=== PATIENT | female | born 1940 | race Asian ===

== ENCOUNTER 2018-11-27 13:40 | Inpatient (IN) | payer MEDICAID ==
[2018-11-27 14:04] LABS: ADD MAN DIFF? NO
[2018-11-27] MEDS: ONDANSETRON 4 MG INJ IV ×2 (14:04→22:47)
[2018-11-27 14:23] LABS: WHITE BLOOD COUNT 11.1 10^3/ul (4.8-10.8)
[2018-11-27 14:23] LABS: BASOPHILS % 0.3 % (0.0-2.0); HEMATOCRIT 48.5 % (37.0-47.0); HEMOGLOBIN 16.4 g/dl (12.0-16.0); LYMPHOCYTES # 0.8 10^3/ul (0.8-2.9); LYMPHOCYTES % 7.2 % (15.0-51.0); MEAN CORPUSCULAR HEMOGLOBIN 28.5 pg (29.0-33.0); MEAN CORPUSCULAR HGB CONC 33.8 g/dl (32.0-37.0); MEAN CORPUSCULAR VOLUME 84.3 fl (82.0-101.0); MEAN PLATELET VOLUME 9.8 fl (7.4-10.4); MONOCYTE # 0.3 10^3/ul (0.3-0.9); MONOCYTES % 2.7 % (0.0-11.0); NEUTROPHIL # 9.9 10^3/ul (1.6-7.5); NEUTROPHILS % 89.3 % (39.0-77.0); PLATELET COUNT 286 10^3/UL (140-415); RED BLOOD COUNT 5.75 10^6/ul (4.20-5.40); RED CELL DISTRIBUTION WIDTH 13.2 % (11.5-14.5)
[2018-11-27 14:26] LABS: ALANINE AMINOTRANSFERASE 17 IU/L (13-69); ALBUMIN 4.6 g/dl (3.3-4.9); ALBUMIN/GLOBULIN RATIO 1.09; ALKALINE PHOSPHATASE 123 IU/L (42-121); ANION GAP 11 (5-13); ASPARTATE AMINO TRANSFERASE 30 IU/L (15-46); BILIRUBIN,INDIRECT 0.4 mg/dl (0-1.1); BILIRUBIN,TOTAL 0.4 mg/dl (0.2-1.3); BLOOD UREA NITROGEN 14 mg/dl (7-20); CALCIUM 9.8 mg/dl (8.4-10.2); CARBON DIOXIDE 24 mmol/L (21-31); CHLORIDE 103 mmol/L (97-110); CREATININE 0.66 mg/dl (0.44-1.00); GLUCOSE 149 mg/dl (70-220); LIPASE 108 U/L (23-300); POTASSIUM 4.1 mmol/L (3.5-5.1); SODIUM 138 mmol/L (135-144); TOTAL PROTEIN 8.8 g/dl (6.1-8.1)
[2018-11-27 14:28] LABS: URINE PH (Dip) POC 5.5 (5.0-8.5)
[2018-11-27 14:28] LABS: URINE BLOOD (Dip) POC Trace-intact (NEGATIVE); URINE GLUCOSE (Dip) POC Negative (NEGATIVE); URINE KETONES (Dip) POC 2+ (NEGATIVE); URINE LEUKOCYTE EST (Dip) POC Negative (NEGATIVE); URINE NITRITE (Dip) POC Negative (NEGATIVE); URINE TOTAL PROTEIN POC 3+ (NEGATIVE)
[2018-11-27] MEDS: morphine 2 MG INJ IV (14:44)
[2018-11-27] MEDS: metroNIDAZOLE 500 MG/NS (PMX) 100 ML IVPB (15:42)
[2018-11-27] MEDS: SOD CHLORIDE 0.9% 500 ML IV (15:44)
[2018-11-27] MEDS ORDERED: FAMOTIDINE 20 MG TAB PO (16:30)
[2018-11-27] MEDS: LEVOFLOXACIN 750MG/D5W (PMX) 150 ML IVPB (16:35)
[2018-11-27] MEDS: KETOROLAC 15 MG INJ IV (16:36)
[2018-11-27] MEDS ORDERED: NACL 0.9% 3 ML SYG IV (17:00)
[2018-11-27] MEDS: PANTOPRAZOLE 40 MG INJ IV (18:23)
[2018-11-27] MEDS: ACETAMINOPHEN 325 MG TAB PO (18:24)
[2018-11-27] MEDS: ATORVASTATIN 10 MG TAB PO (20:46)
[2018-11-27] MEDS: SENNA TAB PO (20:46)
[2018-11-27] MEDS: CIPROFLOXACIN 400MG/D5W 200 ML IVPB (21:34)
[2018-11-27] MEDS ORDERED: metroNIDAZOLE (5 MG/ML) IV SYG IV* (22:00)
[2018-11-27] MEDS: Metronidazole 500 MG in NS 100 ML IVPB (22:47)
[2018-11-28 05:44] LABS: ADD MAN DIFF? NO
[2018-11-28 05:46] LABS: BASOPHILS % 0.1 % (0.0-2.0); EOSINOPHILS % 0.4 % (0.0-7.0); HEMATOCRIT 38.9 % (37.0-47.0); HEMOGLOBIN 12.9 g/dl (12.0-16.0); LYMPHOCYTES # 1.1 10^3/ul (0.8-2.9); LYMPHOCYTES % 13.5 % (15.0-51.0); MEAN CORPUSCULAR HEMOGLOBIN 28.6 pg (29.0-33.0); MEAN CORPUSCULAR HGB CONC 33.2 g/dl (32.0-37.0); MEAN CORPUSCULAR VOLUME 86.3 fl (82.0-101.0); MEAN PLATELET VOLUME 9.6 fl (7.4-10.4); MONOCYTE # 0.6 10^3/ul (0.3-0.9); NEUTROPHIL # 6.4 10^3/ul (1.6-7.5); NEUTROPHILS % 78.6 % (39.0-77.0); PLATELET COUNT 226 10^3/UL (140-415); RED BLOOD COUNT 4.51 10^6/ul (4.20-5.40); RED CELL DISTRIBUTION WIDTH 13.2 % (11.5-14.5)
[2018-11-28 05:59] LABS: WHITE BLOOD COUNT 8.1 10^3/ul (4.8-10.8)
[2018-11-28] MEDS: PANTOPRAZOLE 40 MG INJ IV ×2 (06:12→18:04)
[2018-11-28] MEDS: Metronidazole 500 MG in NS 100 ML IVPB ×3 (06:12→22:59)
[2018-11-28 06:20] LABS: ALANINE AMINOTRANSFERASE 21 IU/L (13-69); ALBUMIN 3.5 g/dl (3.3-4.9); ALBUMIN/GLOBULIN RATIO 1.06; ALKALINE PHOSPHATASE 69 IU/L (42-121); ANION GAP 13 (5-13); ASPARTATE AMINO TRANSFERASE 20 IU/L (15-46); BILIRUBIN,INDIRECT 0.4 mg/dl (0-1.1); BILIRUBIN,TOTAL 0.4 mg/dl (0.2-1.3); BLOOD UREA NITROGEN 16 mg/dl (7-20); CALCIUM 8.8 mg/dl (8.4-10.2); CARBON DIOXIDE 24 mmol/L (21-31); CHLORIDE 101 mmol/L (97-110); CHOLESTEROL 217 mg/dl (100-200); CREATININE 0.86 mg/dl (0.44-1.00); GLUCOSE 120 mg/dl (70-220); HDL CHOLESTEROL 31 mg/dl (33-92); LDL CHOLESTEROL,CALCULATED 161 mg/dl; MAGNESIUM 1.8 mg/dl (1.7-2.5); PHOSPHORUS 4.3 mg/dl (2.5-4.9); POTASSIUM 4.3 mmol/L (3.5-5.1); SODIUM 138 mmol/L (135-144); TOTAL PROTEIN 6.8 g/dl (6.1-8.1); TRIGLYCERIDES 127 mg/dl (0-149)
[2018-11-28 06:20] LABS: HEMOGLOBIN A1C 5.9 % (0-5.9)
[2018-11-28 06:46] LABS: THYROID STIMULATING HORMONE 0.821 MIU/L (0.465-4.680)
[2018-11-28] MEDS: AMLODIPINE 10 MG TAB PO (10:34)
[2018-11-28] MEDS: LORATADINE 10 MG TAB PO (10:34)
[2018-11-28] MEDS: SENNA TAB PO ×2 (10:35→20:35)
[2018-11-28] MEDS: METOPROLOL (XL) 25 MG TAB PO (10:35)
[2018-11-28] MEDS: LISINOPRIL 10 MG TAB PO (10:36)
[2018-11-28] MEDS: ONDANSETRON 4 MG INJ IV (10:41)
[2018-11-28] MEDS: CIPROFLOXACIN 400MG/D5W 200 ML IVPB ×2 (10:44→21:40)
[2018-11-28] MEDS: SOD CHLORIDE 0.9% 1,000 ML IV (14:32)
[2018-11-28] MEDS: POLYETHYLENE GLYCOL 17 GM PACKET PO (14:32)
[2018-11-28] MEDS: ATORVASTATIN 10 MG TAB PO (20:35)
[2018-11-29] MEDS: SOD CHLORIDE 0.9% 1,000 ML IV ×2 (05:55→16:10)
[2018-11-29] MEDS: PANTOPRAZOLE 40 MG INJ IV ×2 (05:55→17:41)
[2018-11-29] MEDS: Metronidazole 500 MG in NS 100 ML IVPB ×3 (06:05→23:19)
[2018-11-29 06:21] LABS: ADD MAN DIFF? NO
[2018-11-29 06:24] LABS: BASOPHILS % 0.3 % (0.0-2.0); EOSINOPHILS # 0.1 10^3/ul (0.0-0.5); EOSINOPHILS % 0.8 % (0.0-7.0); HEMATOCRIT 36.9 % (37.0-47.0); LYMPHOCYTES # 1.2 10^3/ul (0.8-2.9); LYMPHOCYTES % 18.1 % (15.0-51.0); MEAN CORPUSCULAR HEMOGLOBIN 28.8 pg (29.0-33.0); MEAN CORPUSCULAR HGB CONC 32.5 g/dl (32.0-37.0); MEAN CORPUSCULAR VOLUME 88.5 fl (82.0-101.0); MEAN PLATELET VOLUME 9.7 fl (7.4-10.4); MONOCYTE # 0.5 10^3/ul (0.3-0.9); MONOCYTES % 7.1 % (0.0-11.0); NEUTROPHIL # 4.9 10^3/ul (1.6-7.5); NEUTROPHILS % 73.4 % (39.0-77.0); PLATELET COUNT 207 10^3/UL (140-415); RED BLOOD COUNT 4.17 10^6/ul (4.20-5.40); RED CELL DISTRIBUTION WIDTH 13.2 % (11.5-14.5)
[2018-11-29 06:24] LABS: WHITE BLOOD COUNT 6.6 10^3/ul (4.8-10.8)
[2018-11-29 06:49] LABS: PHOSPHORUS 3.8 mg/dl (2.5-4.9)
[2018-11-29 06:49] LABS: MAGNESIUM 1.8 mg/dl (1.7-2.5)
[2018-11-29 07:09] LABS: ALANINE AMINOTRANSFERASE 21 IU/L (13-69); ALBUMIN/GLOBULIN RATIO 0.96; ALKALINE PHOSPHATASE 59 IU/L (42-121); ANION GAP 12 (5-13); ASPARTATE AMINO TRANSFERASE 18 IU/L (15-46); BILIRUBIN,INDIRECT 0.2 mg/dl (0-1.1); BILIRUBIN,TOTAL 0.2 mg/dl (0.2-1.3); BLOOD UREA NITROGEN 11 mg/dl (7-20); CALCIUM 8.6 mg/dl (8.4-10.2); CARBON DIOXIDE 24 mmol/L (21-31); CHLORIDE 104 mmol/L (97-110); CREATININE 0.81 mg/dl (0.44-1.00); GLUCOSE 104 mg/dl (70-220); POTASSIUM 3.8 mmol/L (3.5-5.1); SODIUM 140 mmol/L (135-144); TOTAL PROTEIN 6.1 g/dl (6.1-8.1)
[2018-11-29] MEDS: CIPROFLOXACIN 400MG/D5W 200 ML IVPB ×2 (08:42→22:13)
[2018-11-29] MEDS: POLYETHYLENE GLYCOL 17 GM PACKET PO (08:42)
[2018-11-29] MEDS: METOPROLOL (XL) 25 MG TAB PO (08:44)
[2018-11-29] MEDS: LISINOPRIL 10 MG TAB PO (08:45)
[2018-11-29] MEDS: SENNA TAB PO ×2 (08:45→20:11)
[2018-11-29] MEDS: AMLODIPINE 10 MG TAB PO (08:45)
[2018-11-29] MEDS: LORATADINE 10 MG TAB PO (08:46)
[2018-11-29] MEDS ORDERED: ALBUTEROL HFA 8 GM INHALER INH (15:00)
[2018-11-29] MEDS: MAGNESIUM SULFATE 2 GM/50 ML 50 ML IVPB (16:48)
[2018-11-29] MEDS: ATORVASTATIN 10 MG TAB PO (20:10)
[2018-11-30] MEDS: SOD CHLORIDE 0.9% 1,000 ML IV ×2 (03:21→18:50)
[2018-11-30] MEDS: PANTOPRAZOLE 40 MG INJ IV ×2 (05:18→17:24)
[2018-11-30] MEDS: Metronidazole 500 MG in NS 100 ML IVPB ×3 (05:18→23:35)
[2018-11-30] MEDS: CIPROFLOXACIN 400MG/D5W 200 ML IVPB ×2 (08:29→21:54)
[2018-11-30] MEDS: POLYETHYLENE GLYCOL 17 GM PACKET PO (08:30)
[2018-11-30] MEDS: LISINOPRIL 10 MG TAB PO (08:31)
[2018-11-30] MEDS: SENNA TAB PO ×2 (08:31→20:12)
[2018-11-30] MEDS: LORATADINE 10 MG TAB PO (08:31)
[2018-11-30] MEDS: AMLODIPINE 10 MG TAB PO (08:31)
[2018-11-30] MEDS: METOPROLOL (XL) 25 MG TAB PO (08:32)
[2018-11-30] MEDS: ENOXAPARIN 40 MG/0.4 ML SYG SC (08:33)
[2018-11-30 09:11] LABS: WHITE BLOOD COUNT 8.5 10^3/ul (4.8-10.8)
[2018-11-30 09:11] LABS: ADD MAN DIFF? NO; BASOPHILS % 0.4 % (0.0-2.0); EOSINOPHILS # 0.1 10^3/ul (0.0-0.5); EOSINOPHILS % 0.7 % (0.0-7.0); HEMATOCRIT 38.2 % (37.0-47.0); HEMOGLOBIN 12.3 g/dl (12.0-16.0); LYMPHOCYTES # 1.1 10^3/ul (0.8-2.9); LYMPHOCYTES % 12.5 % (15.0-51.0); MEAN CORPUSCULAR HEMOGLOBIN 28.2 pg (29.0-33.0); MEAN CORPUSCULAR HGB CONC 32.2 g/dl (32.0-37.0); MEAN CORPUSCULAR VOLUME 87.6 fl (82.0-101.0); MEAN PLATELET VOLUME 9.5 fl (7.4-10.4); MONOCYTE # 0.5 10^3/ul (0.3-0.9); NEUTROPHIL # 6.8 10^3/ul (1.6-7.5); NEUTROPHILS % 79.7 % (39.0-77.0); PLATELET COUNT 198 10^3/UL (140-415); RED BLOOD COUNT 4.36 10^6/ul (4.20-5.40); RED CELL DISTRIBUTION WIDTH 13.1 % (11.5-14.5)
[2018-11-30 09:32] LABS: ANION GAP 7 (5-13); BLOOD UREA NITROGEN 8 mg/dl (7-20); CALCIUM 8.5 mg/dl (8.4-10.2); CARBON DIOXIDE 23 mmol/L (21-31); CHLORIDE 108 mmol/L (97-110); CREATININE 0.73 mg/dl (0.44-1.00); GLUCOSE 176 mg/dl (70-220); MAGNESIUM 1.7 mg/dl (1.7-2.5); PHOSPHORUS 3.3 mg/dl (2.5-4.9); POTASSIUM 3.8 mmol/L (3.5-5.1); SODIUM 138 mmol/L (135-144)
[2018-11-30] MEDS: ONDANSETRON 4 MG INJ IV (14:28)
[2018-11-30] MEDS: DIATR MEGLU/DIATRIZOATE SODIUM 120 ML BTL (14:31)
[2018-11-30] MEDS: ATORVASTATIN 10 MG TAB PO (20:13)
[2018-12-01] MEDS: SOD CHLORIDE 0.9% 1,000 ML IV ×2 (00:37→20:38)
[2018-12-01] MEDS: Metronidazole 500 MG in NS 100 ML IVPB ×2 (05:00→14:07)
[2018-12-01] MEDS: PANTOPRAZOLE 40 MG INJ IV (05:01)
[2018-12-01] MEDS: POLYETHYLENE GLYCOL 17 GM PACKET PO (09:00)
[2018-12-01] MEDS: LORATADINE 10 MG TAB PO ×2 (09:11→09:12)
[2018-12-01] MEDS: SENNA TAB PO ×3 (09:12→20:36)
[2018-12-01] MEDS: CIPROFLOXACIN 400MG/D5W 200 ML IVPB (09:12)
[2018-12-01] MEDS: ENOXAPARIN 40 MG/0.4 ML SYG SC (09:16)
[2018-12-01] MEDS: LISINOPRIL 10 MG TAB PO (09:19)
[2018-12-01] MEDS: METOPROLOL (XL) 25 MG TAB PO (09:20)
[2018-12-01] MEDS: AMLODIPINE 10 MG TAB PO (09:20)
[2018-12-01] MEDS: ONDANSETRON 4 MG INJ IV ×2 (10:00→14:07)
[2018-12-01] MEDS: PANTOPRAZOLE (EC) 40 MG TAB PO (17:34)
[2018-12-01] MEDS: ATORVASTATIN 10 MG TAB PO (20:36)
[2018-12-02] MEDS: PANTOPRAZOLE (EC) 40 MG TAB PO ×3 (06:00→17:33)
[2018-12-02] MEDS: SENNA TAB PO (08:53)
[2018-12-02] MEDS: AMLODIPINE 10 MG TAB PO (08:54)
[2018-12-02] MEDS: LORATADINE 10 MG TAB PO (08:54)
[2018-12-02] MEDS: LISINOPRIL 10 MG TAB PO (08:55)
[2018-12-02] MEDS: METOPROLOL (XL) 25 MG TAB PO (08:55)
[2018-12-02] MEDS: ENOXAPARIN 40 MG/0.4 ML SYG SC (08:56)
[2018-12-02] MEDS: SOD CHLORIDE 0.9% 1,000 ML IV (09:03)
[2018-12-02] MEDS: ATORVASTATIN 10 MG TAB PO (20:10)
[2018-12-03] MEDS: PANTOPRAZOLE (EC) 40 MG TAB PO ×2 (06:05→17:28)
[2018-12-03 08:27] LABS: ADD MAN DIFF? NO
[2018-12-03 08:29] LABS: WHITE BLOOD COUNT 5.7 10^3/ul (4.8-10.8)
[2018-12-03 08:29] LABS: BASOPHILS % 0.4 % (0.0-2.0); EOSINOPHILS # 0.2 10^3/ul (0.0-0.5); EOSINOPHILS % 2.8 % (0.0-7.0); HEMATOCRIT 36.7 % (37.0-47.0); HEMOGLOBIN 12.3 g/dl (12.0-16.0); LYMPHOCYTES # 1.2 10^3/ul (0.8-2.9); LYMPHOCYTES % 21.3 % (15.0-51.0); MEAN CORPUSCULAR HEMOGLOBIN 28.2 pg (29.0-33.0); MEAN CORPUSCULAR HGB CONC 33.5 g/dl (32.0-37.0); MEAN CORPUSCULAR VOLUME 84.2 fl (82.0-101.0); MEAN PLATELET VOLUME 9.7 fl (7.4-10.4); MONOCYTE # 0.5 10^3/ul (0.3-0.9); MONOCYTES % 8.3 % (0.0-11.0); NEUTROPHIL # 3.8 10^3/ul (1.6-7.5); NEUTROPHILS % 66.8 % (39.0-77.0); PLATELET COUNT 202 10^3/UL (140-415); RED BLOOD COUNT 4.36 10^6/ul (4.20-5.40); RED CELL DISTRIBUTION WIDTH 12.9 % (11.5-14.5)
[2018-12-03] MEDS: LORATADINE 10 MG TAB PO (08:35)
[2018-12-03] MEDS: LISINOPRIL 10 MG TAB PO (08:36)
[2018-12-03] MEDS: METOPROLOL (XL) 25 MG TAB PO (08:36)
[2018-12-03] MEDS: AMLODIPINE 10 MG TAB PO (08:36)
[2018-12-03] MEDS: ENOXAPARIN 40 MG/0.4 ML SYG SC (08:38)
[2018-12-03 08:49] LABS: ANION GAP 5 (5-13); BLOOD UREA NITROGEN 6 mg/dl (7-20); CALCIUM 8.2 mg/dl (8.4-10.2); CARBON DIOXIDE 31 mmol/L (21-31); CHLORIDE 101 mmol/L (97-110); CREATININE 0.59 mg/dl (0.44-1.00); GLUCOSE 106 mg/dl (70-220); MAGNESIUM 1.6 mg/dl (1.7-2.5); PHOSPHORUS 2.9 mg/dl (2.5-4.9); SODIUM 137 mmol/L (135-144)
[2018-12-03] MEDS: POTASSIUM CHLORIDE (SR) 20 MEQ TAB PO (11:32)
[2018-12-03] MEDS: MAGNESIUM SULFATE 2 GM/50 ML 50 ML IVPB (11:32)
[2018-12-03] MEDS: ATORVASTATIN 10 MG TAB PO (20:16)
[2018-12-04] MEDS: PANTOPRAZOLE (EC) 40 MG TAB PO ×2 (05:08→17:17)
[2018-12-04] MEDS: LISINOPRIL 10 MG TAB PO (08:11)
[2018-12-04] MEDS: ENOXAPARIN 40 MG/0.4 ML SYG SC (08:11)
[2018-12-04] MEDS: AMLODIPINE 10 MG TAB PO (08:11)
[2018-12-04] MEDS: METOPROLOL (XL) 25 MG TAB PO (08:12)
[2018-12-04] MEDS: LORATADINE 10 MG TAB PO (08:12)
== END 2018-12-04 19:28 | disposition home health service (06) | DRG 392 ==
LOC: E/R 13:40 → PP2 15:50
DX: K57.92 Diverticulitis of intestine, part unspecified, without perforation or abscess without bleeding (principal); T62.91XA Toxic effect of unspecified noxious substance eaten as food, accidental (unintentional), initial encounter; R09.02 Hypoxemia; R07.89 Other chest pain; I10 Essential (primary) hypertension; E86.0 Dehydration; J44.9 Chronic obstructive pulmonary disease, unspecified; Z93.3 Colostomy status; E78.5 Hyperlipidemia, unspecified; Z85.048 Personal history of other malignant neoplasm of rectum, rectosigmoid junction, and anus
CPT/HCPCS: 36415; 71045; 74176; 74250; 80048; 80053; 80061; 81003; 83036; 83690; 83735; 84100; 84443; 85025; 93005; 96374; 97110; 97116; 97162; 97530; 99285-25